=== PATIENT | female | born 1995 | race Caucasian/White ===

== ENCOUNTER → 2016-05-07 | Outpatient (REF) | payer OTHER ==
[~2016-05-07] MED LIST: ACET160S3 OR; ACET50TA PO; ANUS2.5C2 TOP; CLEO300C OR; COLA100C PO; IBUP-1114 PO; IBUP100S OR; MOM30SS PO; PREN27TA3 PO
== END | disposition home or self-care (01) ==
LOC: M LAB REF 13:10
PROVIDERS: ATTEND Advanced Practice Midwife
DX: Z12.4 Encounter for screening for malignant neoplasm of cervix (principal); R87.612 Low grade squamous intraepithelial lesion on cytologic smear of cervix (LGSIL)

== ENCOUNTER → 2017-08-17 | Outpatient (REF) | payer OTHER | LOC: M SFHCLERA 10:03 | DX: M54.41 Lumbago with sciatica, right side (principal) ==

== ENCOUNTER → 2018-03-30 | Outpatient (CLI) | payer OTHER ==
[2018-03-30 17:33] LABS: BASO % 0.4 % (0.0-1.0); EOS # 0.2 10^3/uL (0.0-0.50); EOS % 1.6 % (0.0-3.0); HEMATOCRIT 36.3 % (36.0-47.0); HEMOGLOBIN 12.2 g/dl (12.0-15.5); IMMATURE GRANULOCYTE % 0.3 % (0-3.0); LYMPH # 2.1 10^3/uL (1.5-6.5); LYMPH % 20.3 % (24.0-44.0); MEAN CORPUSCULAR HEMOGLOBIN 30.5 pg (27.0-33.0); MEAN CORPUSCULAR HGB CONC 33.6 g/dl (32.0-36.5); MEAN CORPUSCULAR VOLUME 90.8 fl (80.0-96.0); MONO # 0.7 10^3/uL (0.0-0.8); MONO % 7.1 % (0.0-5.0); NEUTROPHILS # 7.2 10^3/uL (1.8-7.7); NEUTROPHILS % 70.3 % (36.0-66.0); PLATELET COUNT, AUTOMATED 247 10^3/uL (150-450); RED CELL DISTRIBUTION WIDTH 12.2 % (11.5-14.5); WHITE BLOOD COUNT 10.2 10^3/uL (4.0-10.0)
[2018-03-30 23:08] LABS: CHLAMYDIA DNA AMPLIFICATION NEGATIVE (NEGATIVE); GC DNA AMPLIFICATION NEGATIVE (NEGATIVE)
[2018-04-01 12:53] LABS: HBsAg Prenatal NEGATIVE (NEGATIVE); HIV 1&2 SCREEN CENTAUR NEGATIVE (NEGATIVE); RUBELLA IgG QUALITATIVE IMMUNE (IMMUNE)
[2018-04-01 12:53] LABS: HEPATITIS C VIRUS ABY INDEX 0.1 INDEX (<0.8)
[2018-04-04 00:11] LABS: T PALLIDUM ANTIBODIES Negative (Negative)
== END ==
LOC: M SMT 14:19
DX: Z34.81 Encounter for supervision of other normal pregnancy, first trimester (principal); Z36.89 Encounter for other specified antenatal screening; Z3A.08 8 weeks gestation of pregnancy
CPT/HCPCS: 86762

== ENCOUNTER 2018-03-31 10:26 | Emergency (ER) | payer OTHER ==
[2018-03-31] MEDS: NS 1,000 ML IV (13:00)
[2018-03-31 13:26] LABS: BASO # 0.1 10^3/uL (0.0-0.2); BASO % 0.4 % (0.0-1.0); EOS # 0.1 10^3/uL (0.0-0.50); EOS % 1.1 % (0.0-3.0); HEMATOCRIT 38.9 % (36.0-47.0); HEMOGLOBIN 13.1 g/dl (12.0-15.5); IMMATURE GRANULOCYTE % 0.3 % (0-3.0); LYMPH # 2.1 10^3/uL (1.5-6.5); LYMPH % 17.5 % (24.0-44.0); MEAN CORPUSCULAR HEMOGLOBIN 30.8 pg (27.0-33.0); MEAN CORPUSCULAR HGB CONC 33.7 g/dl (32.0-36.5); MEAN CORPUSCULAR VOLUME 91.5 fl (80.0-96.0); MONO # 0.8 10^3/uL (0.0-0.8); MONO % 6.8 % (0.0-5.0); NEUTROPHILS # 8.9 10^3/uL (1.8-7.7); NEUTROPHILS % 73.9 % (36.0-66.0); PLATELET COUNT, AUTOMATED 270 10^3/uL (150-450); RED BLOOD COUNT 4.25 10^6/uL (4.00-5.40); RED CELL DISTRIBUTION WIDTH 12.2 % (11.5-14.5)
[2018-03-31] MEDS: ALBUTEROL SULFATE 2.5 MG/0.5 ML INH NEB SOLN NEB ×2 (13:29→13:50)
[2018-03-31 13:58] LABS: ANION GAP 7 MEQ/L (8-16); BLOOD UREA NITROGEN 10 MG/DL (7-18); CARBON DIOXIDE LEVEL 25 MEQ/L (21-32); CHLORIDE LEVEL 105 MEQ/L (98-107); CREATININE FOR GFR 0.59 MG/DL (0.55-1.30); FREE THYROXINE INDEX 2.9 % (1.3-4.8); GLOMERULAR FILTRATION RATE > 60.0 (>60); GLUCOSE, FASTING 101 MG/DL (70-100); MAGNESIUM LEVEL 1.9 MG/DL (1.8-2.4); POTASSIUM SERUM 4.5 MEQ/L (3.5-5.1); SODIUM LEVEL 137 MEQ/L (136-145); T UPTAKE 25 % (30-39); THYROXINE (T4) 11.7 UG/DL (4.5-12.0)
== END 2018-03-31 15:35 | disposition home or self-care (01) ==
LOC: M ED 10:26
DX: O99.89 Other specified diseases and conditions complicating pregnancy, childbirth and the puerperium (principal); R07.9 Chest pain, unspecified; Z3A.09 9 weeks gestation of pregnancy; M41.80 Other forms of scoliosis, site unspecified; Z87.891 Personal history of nicotine dependence; Z79.899 Other long term (current) drug therapy
CPT/HCPCS: 71045

== ENCOUNTER → 2018-06-08 | Outpatient (CLI) | payer OTHER ==
[~2018-06-08] MED LIST changes: -ACET50TA PO; -COLA100C PO; +COLA100C5 PO; +MAPA500T2 PO; +PREN200C PO; +VENTAER INH
--- NOTE | 2018-06-08 15:59 | REP ---
Obstetric ultrasound for anatomy: There is a single intrauterine gestation. position is variable. heart rate is 150 beats per minute. The placenta is anterior without previa or abruptio. The placenta is grade zero maturity. The amniotic fluid volume subjectively is normal. The cervix measures 4.1 cm length. Gestational age by the ultrasound today is 19 weeks 2 days/SALVATORE 10/31/2018. By LMP gestational age is 18 weeks 6 days/SALVATORE 11/03/2018. weight is 201 grams (0 pounds, 9 ounces). This is the 59 percentile for 18 weeks 6 days. The following anatomic structures are identified and are unremarkable: Intracranial lateral ventricles, cerebellum, cisterna magna, facial profile, upper lip, face, lungs, four-chamber heart, cardiac right and left ventricular outflow tracts, diaphragm, stomach, cord insertion, three-vessel cord, kidneys, bladder, spine and upper lower extremities. No anomalies are identified. Electronically Signed by Foster Villareal MD 06/08/2018 03:49 P
== END ==
LOC: M RAD 13:09
PROVIDERS: ATTEND Specialist
DX: Z36.89 Encounter for other specified antenatal screening (principal); Z3A.19 19 weeks gestation of pregnancy

== ENCOUNTER → 2018-07-28 | Outpatient (CLI) | payer OTHER ==
[2018-07-28 17:54] LABS: HEMATOCRIT 32.3 % (36.0-47.0); HEMOGLOBIN 10.6 g/dl (12.0-15.5); MEAN CORPUSCULAR HEMOGLOBIN 30.4 pg (27.0-33.0); MEAN CORPUSCULAR HGB CONC 32.8 g/dl (32.0-36.5); MEAN CORPUSCULAR VOLUME 92.6 fl (80.0-96.0); PLATELET COUNT, AUTOMATED 228 10^3/uL (150-450); RED BLOOD COUNT 3.49 10^6/uL (4.00-5.40)
== END ==
LOC: M WUC 14:02
PROVIDERS: ATTEND Advanced Practice Midwife
DX: Z34.82 Encounter for supervision of other normal pregnancy, second trimester (principal); Z3A.00 Weeks of gestation of pregnancy not specified

== ENCOUNTER → 2018-10-13 | Outpatient (REF) | payer OTHER, MEDICAID | LOC: M LAB REF 17:35 | PROVIDERS: ATTEND Advanced Practice Midwife | DX: Z34.83 Encounter for supervision of other normal pregnancy, third trimester (principal); Z3A.00 Weeks of gestation of pregnancy not specified ==

== ENCOUNTER 2018-10-31 14:55 | Inpatient (IN) | payer OTHER, MEDICAID ==
[~2018-10-31] VITALS: Ht 160 cm; Wt 84.2 kg
[2018-10-31] VITALS (14 sets, daily range): BP systolic 110–143; BP diastolic 57–85
[2018-10-31] MEDS ORDERED: PROT20TA11 PO (15:16)
[2018-10-31] MEDS ORDERED: LR 1,000 ML IV SCH (15:51)
[2018-10-31] MEDS ORDERED: OXYTOCIN DRIP 30 UNITS in APPROPRIATE DILUENT 1 EA IV SCH (16:00)
[2018-10-31 16:15] LABS: HEMATOCRIT 31.2 % (36.0-47.0); HEMOGLOBIN 10.4 g/dl (12.0-15.5); MEAN CORPUSCULAR HEMOGLOBIN 30.4 pg (27.0-33.0); MEAN CORPUSCULAR HGB CONC 33.3 g/dl (32.0-36.5); MEAN CORPUSCULAR VOLUME 91.2 fl (80.0-96.0); PLATELET COUNT, AUTOMATED 241 10^3/uL (150-450); RED BLOOD COUNT 3.42 10^6/uL (4.00-5.40); WHITE BLOOD COUNT 11.1 10^3/uL (4.0-10.0)
--- NOTE | 2018-10-31 16:48 | HPE ---
DATE OF ADMISSION: 10/31/2018 A 23-year-old G2, P1 female at 39-2/7 weeks gestation by last menstrual period (LMP) consistent with 8-week ultrasound, estimated date of confinement (EDC) of 11/05/2018, presents with spontaneous loss of fluid per vagina at 2:45 p.m. on the day of admission. She was at work at the time. She continued to leak fluid during contractions, going on throughout the day, increased in frequency and intensity after episode of leaking. COURSE: The patient appreciated care at 8-weeks gestation. On 03/30/2018, she had an episode of a racing heartbeat as well as shortness of breath. This ultimately resolved and the went on. She had no further complications. OBSTETRICAL HISTORY: January 2016: Vaginal delivery 7 pound 15 ounce male infant; there were no complications. MEDICAL HISTORY: None. SURGICAL HISTORY: None. ALLERGIES: None. SOCIAL HISTORY: Father of the baby is involved with the patient, who lives in [place]. She denies cigarettes, alcohol or drug use. FAMILY HISTORY: Noncontributory. PHYSICAL EXAMINATION: Blood pressure 130/79, pulse 68, afebrile. She appears moderately uncomfortable. HEAD AND NECK EXAM: Normal. LUNGS: Clear to auscultation. HEART: Regular rate and rhythm. ABDOMEN: Nontender and gravid. heart tones category 1. Contractions every 2-4 minutes. Palpate is moderate. STERILE VAGINAL EXAM: Grossly ruptured clear fluid noted. 4 cm, 70%, -2, +0, soft vertex. EXTREMITIES: Nontender. LABORATORIES: Blood type O positive, rubella immune, rapid plasma reagin (RPR) reactive. Diabetes screen 106. Group B Streptococcus (GBS) negative 10/13/2018. ASSESSMENT: A 23-year-old G2, P1 female at 39-2/7 weeks gestation presents with ruptured membranes in early labor. PLAN: Patient will be admitted on 10/31/2018.
[2018-10-31] MEDS ORDERED: BUTORPHANOL 2 MG/ML INJ (J0595) IV ONE (21:00)
[2018-10-31] MEDS ORDERED: PROMETHAZINE INJ 25 MG/ML VIAL (J2550) IV ONE (21:00)
[2018-10-31] MEDS ORDERED: MEASLES,MUMPS,RUBELLA VACCINE INJ (MMR-II) (90707) SC SCH (23:45)
[2018-10-31] MEDS ORDERED: ONDANSETRON 4MG/2ML VIAL (J2405) IV PRN (23:45)
[2018-10-31] MEDS ORDERED: METHYLERGONOVINE MALEATE 0.2 MG TAB PO PRN (23:45)
[2018-10-31] MEDS ORDERED: RHOGAM 300 MCG (1500 IU) INJ (J2790) IM SCH (23:45)
[2018-10-31] MEDS ORDERED: OXYTOCIN DRIP 30 UNITS in APPROPRIATE DILUENT 1 EA IV ONE (23:45)
[2018-10-31] MEDS ORDERED: DOCUSATE SODIUM 100 MG CAP PO PRN (23:45)
[2018-10-31] MEDS ORDERED: DIBUCAINE 1% OINTMENT 30GM TOP PRN (23:45)
[2018-11-01] VITALS (8 sets, daily range): BP systolic 104–124; BP diastolic 55–70
[2018-11-01] MEDS: IBUPROFEN 800 MG TAB PO PRN ×3 (00:19→18:08)
[2018-11-01] MEDS ORDERED: SLF 3 ML SYR IV PRN (01:30)
[2018-11-01] MEDS: ACETAMINOPHEN 500 MG TAB PO PRN ×3 (03:12→22:39)
[2018-11-01] MEDS: SLF 3 ML SYR IV SCH ×2 (06:23→15:28)
[2018-11-01] MEDS: PRENATAL VITAMINS CHEWABLE TABLET PO SCH (09:00)
[2018-11-01] MEDS: PANTOPRAZOLE 40MG TAB (PROTONIX) PO SCH (11:20)
--- NOTE | 2018-11-01 14:04 | DN ---
DATE OF DELIVERY: 10/31/2018 PREDELIVERY DIAGNOSIS: 39 weeks gestation, labor POSTOPERATIVE DIAGNOSIS: Delivered. PROCEDURE: Spontaneous vaginal delivery. CLOUD SYSTEMS ADMINISTRATOR: Dr. Stephen Foley ANESTHESIA: None. ESTIMATED BLOOD LOSS: 300 mL. FINDINGS: 7 pound 14 ounce male infant, Apgars 8 and 9. DELIVERY SUMMARY: After 21 minute second stage, the patient had spontaneous delivery of a 7 pound 14 ounce male infant with no delivery anesthesia. There was no nuchal cord. The shoulders delivered with ease. The infant was handed to the mother and cried shortly thereafter. The cord was doubly clamped and cut. The placenta delivered spontaneously and appeared to be intact. The patient received IV Pitocin after delivery of the placenta. There were no vaginal lacerations present. Sponge counts were correct.
[2018-11-02] MEDS: IBUPROFEN 800 MG TAB PO PRN (05:28)
[2018-11-02 06:06] VITALS: BP 120/77
[2018-11-02] MEDS ORDERED: ACET-683 PO (06:15)
[2018-11-02] MEDS ORDERED: IBUP80TA PO (06:15)
[2018-11-02] MEDS: PANTOPRAZOLE 40MG TAB (PROTONIX) PO SCH (08:13)
[2018-11-02] MEDS: PRENATAL VITAMINS CHEWABLE TABLET PO SCH (08:13)
== END 2018-11-02 11:55 | disposition home or self-care (01) | DRG 560 ==
LOC: M LDO 14:55 → M LDI 15:35 → M OBS 11-01 02:21
PROVIDERS: ADMIT Specialist; ATTEND Specialist
PROC: 10E0XZZ Delivery of Products of Conception, External Approach (ICD-10-PCS; principal; 2018-10-31)
DX: O80 Encounter for full-term uncomplicated delivery (principal); Z3A.39 39 weeks gestation of pregnancy; Z37.0 Single live birth

== ENCOUNTER → 2020-06-14 | Outpatient (REF) | payer OTHER, MEDICAID ==
[~2020-06-14] MED LIST changes: +ACET-683 PO; +IBUP80TA PO; +PROT20TA11 PO
== END ==
LOC: M SFHCWAGY 16:53
PROVIDERS: ATTEND Advanced Practice Midwife
DX: Z12.4 Encounter for screening for malignant neoplasm of cervix (principal)

== ENCOUNTER → 2020-07-13 | Outpatient (CLI) | payer OTHER ==
--- NOTE | 2020-07-13 12:31 | REPMRS ---
Pt states pain in left breast mostly at 10:00 to 11:00. Entire left breast scanned. No distinct abnormalities seen. Performed by: Mckenna Arzate, Fence Laborer Breast Ultrasound Unilat Limited: Left Breast - July 13, 2020 - Exam #: [id number] Technologist: Mckenna Arzate, Fence Laborer
== END ==
LOC: M WHC 11:23
PROVIDERS: ATTEND Advanced Practice Midwife
DX: N64.4 Mastodynia (principal); Z80.3 Family history of malignant neoplasm of breast

== ENCOUNTER → 2023-11-06 | Outpatient (REF) | payer OTHER ==
[2023-11-06 19:46] LABS: HEMOGLOBIN A1c 4.8 % (4.0-6.0)
[2023-11-06 19:56] LABS: TOTAL 25(OH) VITAMIN D 28.2 NG/ML (20.0-100.0)
[2023-11-06 19:57] LABS: ALBUMIN 4.3 G/DL (3.2-5.2); ALKALINE PHOSPHATASE 74 U/L (46-116); ALT/SGPT 29 U/L (7.0-40); AST/SGOT 16 U/L (<34); BILIRUBIN,TOTAL 0.6 MG/DL (0.3-1.2); BLOOD UREA NITROGEN 14 MG/DL (9-23); CALCIUM LEVEL 9.4 MG/DL (8.5-10.1); CARBON DIOXIDE LEVEL 26 MMOL/L (20-31); CHLORIDE LEVEL 108 MMOL/L (98-107); CHOLESTEROL LEVEL 169 MG/DL (<200); CHOLESTEROL RISK RATIO 2.28 (<5); CREATININE FOR GFR 0.75 MG/DL (0.55-1.30); GLOMERULAR FILTRATION RATE > 60.0 (>60); GLUCOSE, FASTING 85 MG/DL (60-100); HDL CHOLESTEROL 73.9 MG/DL (>40); LDL CHOLESTEROL 66.1 MG/DL (<100); NON-HDL-C 95.1 MG/DL; POTASSIUM SERUM 4.3 MMOL/L (3.5-5.1); SODIUM LEVEL 141 MMOL/L (136-145); TOTAL PROTEIN 7.5 G/DL (5.7-8.2); TRIGLYCERIDES LEVEL 145 MG/DL (<150)
== END ==
LOC: M LAB REF 16:54
PROVIDERS: ATTEND Physician Assistant
DX: Z11.9 Encounter for screening for infectious and parasitic diseases, unspecified (principal); E55.9 Vitamin D deficiency, unspecified; E66.9 Obesity, unspecified

== ENCOUNTER → 2024-01-14 | Outpatient (REF) | payer OTHER ==
[2024-01-14 16:45] LABS: APPEARANCE, URINE HAZY (CLEAR); BACTERIA, URINE AUTO NEGATIVE (NEGATIVE); BILIRUBIN, URINE AUTO NEGATIVE (NEGATIVE); BLOOD, URINE BLOOD 1+ (NEGATIVE); COLOR, URINE YELLOW (YELLOW); GLUCOSE, URINE (UA) AUTO NEGATIVE (NEGATIVE); KETONE, URINE AUTO NEGATIVE (NEGATIVE); LEUKOCYTE ESTERASE, URINE AUTO 2+ (NEGATIVE); NITRITE, URINE AUTO NEGATIVE (NEGATIVE); PROTEIN, URINE AUTO NEGATIVE (NEGATIVE); RBC, URINE AUTO 1 /HPF (0-3); SPECIFIC GRAVITY URINE AUTO 1.016 (1.002-1.035); SQUAMOUS EPITHELIAL CELL UR AU 12 /HPF (0-6); UROBILINOGEN, URINE AUTO 0.2 mg/dL (0.0-2.0); WBC, URINE AUTO 4 /HPF (0-3)
[2024-01-14 18:18] LABS: Trichomonas vaginalis (AMP) NOT DETECTED (NEGATIVE)
[2024-01-14 18:42] LABS: GC DNA AMPLIFICATION NEGATIVE (NEGATIVE)
== END ==
LOC: M LAB REF 16:05
PROVIDERS: ATTEND Physician Assistant
DX: N39.0 Urinary tract infection, site not specified (principal); Z20.2 Contact with and (suspected) exposure to infections with a predominantly sexual mode of transmission